=== PATIENT | male | born 1960 | race African-American/Black ===

== ENCOUNTER 2016-10-18 08:47 | Observation (INO) ==
--- NOTE | 2016-10-18 09:15 | EKG Report ---
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: JOSE JUAN : 1960 Requested by: Alonso Roberson Order Number: [id number] Reading MD: ELLIS PENA Intervals [place] Rate: 91 P: 72 RI: 158 QRS: -43 QRSD: 110 T: 146 QT: 397 QTc: 446 Interpretive Statements SINUS RHYTHM POSSIBLE RIGHT ATRIAL ENLARGEMENT POSSIBLE LEFT ATRIAL ENLARGEMENT MARKED LEFT AXIS DEVIATION LEFT VENTRICULAR HYPERTROPHY AND ST-T CHANGE POSSIBLE LATERAL MYOCARDIAL INFARCTION, OF INDETERMINATE AGE INTERPRETATION BASED ON A DEFAULT AGE OF 40 YEARS Electronically Signed On 10-23-16 11:08:52 CDT by ELLIS PENA [id number]
--- NOTE | 2016-10-18 09:17 | Emergency Department Note ---
Rory Licona Gwan, am scribing for, and in the presence of, Alonso Deleon MD 09:15 . Adrienne Licona James D, MD, personally performed the services described in this documentation, ascribed by Cole Valadez in my presence, and it is both accurate and complete . Arrival - Arrival Chief Complaint: Chest Pain ED Nursing Triage Note: Brought in by EMS transfer from [place] [facility] c/o midsternal chest pain-onset last night. +SOB. Denies N/V. Took NTG without relief. Mode of Arrival: Stretcher Limitations: No Limitations Source: Old Records Reviewed, RN Notes Reviewed - History of Present Illness HPI Narrative: Pt is a 56 y/o male, with a hx of HTN/CAD/VT, who presents to the ED via EMS transferred from [place] with a c/o chest pain with an onset 2129 last night. Patient describes his pain as stabbing and stated that his pain has been constant since onset. His associate sxs have been SOB and diaphoresis. He denies any N/V. He confirmed that he is being followed by Dr. Griffin, that he received stent placement in 2009 and that prior to stent placement he was asymptomatic. Patient continued to note that he received NTG at [facility] prior to arrival with little to no relief. He has a SHx of .5 pack cigarettes every 2 days. No other problems/complaints reported in ED. Onset (ago): day(s) Consistency: constant Severity: moderate Allergies/Adverse Reactions: Allergies Allergy/AdvReac Type Severity Reaction Status Date / Time No Known Allergies Allergy Verified 10/18/16 08:58 Review of System - Review of System 12 point system: reviewed and no additional remarkable complaints except as stated - Review of System Constitutional: Present: as per HPI, diaphoresis. Absent: chills, fever Eyes: Absent: discharge, pain Head/Ears/Nose/Throat: Absent: earache Respiratory: Present: as per HPI, other (shortness of breathe). Absent: cough Cardiovascular: Present: as per HPI, chest pain Gastrointestinal: Absent: abdominal pain, nausea, vomiting, diarrhea Genitourinary male: Absent: dysuria Musculoskeletal: Absent: arm pain, back pain, leg pain, neck pain Skin: Absent: rash, lesions Neurological: Absent: headache, weakness Psychiatric: Absent: anxiety, depression Medical,Surgical,& Family Hx - Medical History Cardio: History of: CAD, Hypertension, [place] - Surgical History Cardiac Surgeries: Sugical HX of: Cardiac Catheterization (stents x's 4) - Social History Smoking Status: Current every day smoker Frequency of Alcohol Use: None Type of Drug Use: Marijuana Exam Physical Examination: GENERAL: This is a well-nourished, well-developed black male in no apparent distress. VITAL SIGNS: HEENT: Head is normocephalic and atraumatic. Pupils are equally round and reactive to light. Extraocular movement are intact. Oropharynx is benign with moist mucous membranes. NECK: Neck is soft and supple without tenderness. There are no masses. There is no lymphadenopathy. LUNGS: Lungs are clear to auscultation bilaterally. Chest rises symmetrically. There is no chest wall tenderness. Patient has expiratory wheezes bilaterally CV: Heart is regular rate and rhythm without murmurs, rubs, or gallops. ABDOMEN: Abdomen is soft, non-tender to palpation. There are no abnormal masses palpated. There is no organomegaly. Bowel sounds are present and active. SKIN: Skin is warm and dry. No rash. EXTREMITIES: Patient has full range of motion without tenderness. There is no pedal edema. NEUROLOGIC: Awake, alert, and oriented x4. Cranial nerves II through XII are grossly intact. There are no motorsensory deficits. PSYCHIATRIC: Normal affect. Normal mood. Vital Signs: Vital Signs Temperature 97.9 F 10/18/16 08:54 Pulse Rate 98 H 10/18/16 10:31 Respiratory Rate 20 10/18/16 10:31 Blood Pressure 111/94 10/18/16 10:31 O2 Sat by Pulse Oximetry 96 10/18/16 10:31 Course - Consultations Consultation #1: Discussed with Dr. Donis. Patient will be admitted to his service. Initial orders written for him. He will assume patient's care upon arrival to the [facility]. Time: 11:10 Results - Labs Lab Results: I have reviewed the patients labs Labs: Laboratory Tests 10/18/16 10/18/16 09:22 09:22 Troponin I 0.169 H B-Natriuretic Peptide 619 H - EKG EKG results: interpreted by ERMD - Impressions EKG: Normal sinus rhythm with a rate of 91, voltage for LVH, ST-T wave changes consistent with LVH, left atrial enlargement, right atrial enlargement. - Diagnostic Findings Procedure: Chest x-ray: image reviewed by me (Chest x-ray performed at [facility]: Cardiomegaly with increased pulmonary markings bilaterally.) Disposition Clinical Impression: Chest pain, Coronary artery disease, Essential hypertension Case discussed with: patient Disposition: Still a Patient Condition: Stable
[2016-10-18] MEDS ORDERED: FUROSEMIDE 40 MG/4 ML VIAL IV STA (10:10)
[2016-10-18] MEDS ORDERED: FUROSEMIDE 40 MG/4 ML VIAL ONE (10:28)
[2016-10-18] MEDS ORDERED: MORPHINE 2 MG/1 ML SYRINGE IV STA (10:33)
[2016-10-18] MEDS ORDERED: MORPHINE 2 MG/1 ML SYRINGE ONE (10:37)
[2016-10-18] MEDS ORDERED: MAGNESIUM SULF RIDER 2 GM in PREMIX 1 EACH IV PRN ×2 (11:50→14:11)
[2016-10-18] MEDS ORDERED: SODIUM CHLORIDE 0.9% 1,000 ML IV SCH (11:50)
[2016-10-18] MEDS ORDERED: MORPHINE 2 MG/1 ML SYRINGE IV PRN (11:50)
[2016-10-18] MEDS ORDERED: MAGNESIUM SULF RIDER 4 GM in PREMIX 1 EACH IV PRN (11:50)
[2016-10-18] MEDS ORDERED: ONDANSETRON 4 MG/2 ML VIAL IV PRN (11:50)
[2016-10-18] MEDS ORDERED: ASPIRIN 325 MG TABLET PO SCH (11:50)
[2016-10-18] MEDS ORDERED: NITROGLYCERIN 2% OINT 1 INCH/GM PACK TOP SCH (12:00)
--- NOTE | 2016-10-18 12:01 | EKG Report ---
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 : 1960 Requested by: Alonso Roberson Order Number: [id number] Reading MD: ELLIS PENA Intervals [place] Rate: 99 P: 73 ME: 138 QRS: -38 QRSD: 116 T: 157 QT: 395 QTc: 451 Interpretive Statements SINUS RHYTHM WITH OCCASIONAL VENTRICULAR PREMATURE COMPLEXES POSSIBLE RIGHT ATRIAL ENLARGEMENT POSSIBLE LEFT ATRIAL ENLARGEMENT LEFT AXIS DEVIATION LEFT VENTRICULAR HYPERTROPHY AND ST-T CHANGE POSSIBLE LATERAL MYOCARDIAL INFARCTION, OF INDETERMINATE AGE IF PRESENT POSSIBLE LVH WITH REPOLARIZATION ABNORMALITIES Electronically Signed On 10-23-16 11:17:31 CDT by ELLIS PENA [email or web address]
[2016-10-18 12:45] LABS: Basophils % 0.6 % (0.0-0.8); Eosinophils # 0.2 10*3/uL (0.0-0.87); Eosinophils % 3.4 % (0.00-10.9); Hematocrit 46.6 VOL% (42.0-52.0); Hemoglobin 15.1 GM/DL (14.0-18.0); Immature Granulocytes % 0.3 %; Immature Granulocytes Absolute 0.02 #; Lymphocytes # 1.6 10*3/uL (1.4-4.0); Lymphocytes % 22.6 % (21.2-54.2); Mean Corpuscular HGB Conc 32.4 GM/DL (32-36); Mean Corpuscular Hemoglobin 28 PG (27-34); Mean Platelet Volume 11.7 FL (9.6-12.0); Monocytes # 0.3 10*3/uL (0.11-0.8); Monocytes % 3.8 % (1.7-12.7); Neutrophils # 4.9 10*3/uL (1.4-7.4); Neutrophils % 69.3 % (38.7-73.9); Platelet Count 166 T/CUMM (130-400); Red Blood Count 5.42 MC/CUMM (3.8-5.5); White Blood Count 7.1 T/CUMM (4-12)
[2016-10-18] MEDS ORDERED: ENOXAPARIN 80 MG/0.8 ML SYRINGE SUBCUT SCH (13:00)
[2016-10-18 13:20] LABS: Osmolality,Calculated 278.5 MOS/KG (273-304); Potassium 4.1 MMOL/L (3.5-5.1)
[2016-10-18] MEDS ORDERED: diphenhydrAMINE CAP 25 MG CAPSULE PO ONE (14:11)
[2016-10-18] MEDS ORDERED: POTASSIUM CHLORIDE RIDER 10 MEQ in PREMIX 1 EACH IV PRN (14:11)
[2016-10-18] MEDS ORDERED: DIAZEPAM 5 MG TABLET PO ONE (14:11)
--- NOTE | 2016-10-18 14:20 | Cardiology History & Physical ---
<Colette Guardado E - Last Filed: 10/18/16 14:12> Assessment and Plan - Time spent with patient Time spent with patient: Greater than 30 minutes (Due to assessment, plan, and documentation.) Time spent discussing smoking cessation with patient: 3 to 10 minutes (1) Non-ST elevated myocardial infarction (non-STEMI) Status: Acute Assessment and plan: Mr. Montalvo will be taken to the Cardiology Teacher today for left heart catheterization with possible PCI. Risks and benefits have been discussed with the patient by Dr. Zazueta. The patient agrees to proceed. [facility] Current Visit: Yes (2) Chest pain Status: Acute Assessment and plan: We will proceed with left heart catheterization today for further evaluation. We will continue to cycle cardiac biomarkers. Current Visit: Yes (3) Hypercholesterolemia Status: Chronic Assessment and plan: Continue pravastatin. We will recheck lipid panel in the a.m. Current Visit: Yes (4) History of cocaine use Status: Chronic Assessment and plan: Has not used cocaine since . Urine drug screen pending. Current Visit: Yes (5) Cannabis abuse Status: Chronic Assessment and plan: Admits to smoking marijuana on a regular basis. Current Visit: Yes (6) Tobacco abuse Status: Chronic Assessment and plan: Spent greater than 5 minutes discussing the harmful effects of tobacco use and encouraged patient to quit. Current Visit: Yes (7) Coronary artery disease Status: Chronic Assessment and plan: Previously noted to have percent occlusion of small OM1, diffuse irregularities in the LAD with an aneurysmal segment in the proximal portion after the second septal filler room attendant, dominant RCA with mild diffuse irregularities, 2 diagonal branches with mild diffuse irregularities. Current Visit: Yes (8) Essential hypertension Status: Chronic Assessment and plan: Currently well controlled. Will continue to monitor and adjust medications as needed. We will continue patient's home medications. Current Visit: Yes History of Present Illness Chief complaint: Chest pain History of present illness: Cook Helper Vegetable: Dr. Griffin in the remote past PCP: Dr. Dover Mr. Montalvo is a 56 year old -[place] male who was previously seen by Dr. Griffin. His primary care provider is Dr. Dover. 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 He has a family history of coronary artery disease including a mother who had an VA in her mid 60s, brother who had an VA at age 50 with subsequent CABG. He lives in [place] with his mother. He is and unemployed. 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 His surgical history is noncontributory. Mr. Montalvo presented to [facility] with progressive angina ongoing for approximately 8-12 hours. He tells me that for the past couple days he has had progressive dyspnea on exertion and has been unable to walk short distances. He tells me he has not noticed any leg, abdominal, or facial edema. Last night around 9 PM he noticed a midsternal chest pain that was sharp in quality. He tells me this came and went throughout the night until he went to [facility]. He reports this was mildly relieved with nitroglycerin but returned. He was subsequently transferred to our facility for further evaluation and we admitted him. He tells me his pain had returned upon arrival to our facility but he was given an additional nitroglycerin and this subsided. He reports prior to the past couple of days, he had not had any recent medical issues. Upon arrival to our facility, his troponin was 0.169. Creatinine 1.3, BNP 619, potassium 4.1. His troponin is now up to 0.343. I am seeing Mr. Montalvo along with Dr. Zazueta in the CCU, room 129. It appears Mr. Montalvo has had a second in STEMI and Dr. Zazueta will proceed with left heart catheterization and possible intervention today. He previously underwent left heart catheterization with Dr. link on November 09, 2010 which revealed 100% occluded small OM 1, diffuse irregularities in the LAD with an aneurysmal segment in the proximal portion after the second septal filler room attendant, mild diffuse irregularities in 2 diagonal branches, dominant RCA with mild diffuse irregularities. At that time his ejection fraction was estimated at 15%. Further plan and addendum to followed by Dr. Zazueta. Home Medications Medication Instructions Recorded Confirmed Type Aspirin EC Tab 81 mg PO DAILY 10/18/16 10/18/16 History Carvedilol 12.5 mg PO BID 10/18/16 10/18/16 History Clopidogrel [Plavix] 75 mg PO DAILY 10/18/16 10/18/16 History Lisinopril/Hydrochlorothiazide 1 each PO DAILY 10/18/16 10/18/16 History [Lisinopril-Hctz 20-25 mg Tab] Pravastatin [Pravachol] 40 mg PO BEDTIME 10/18/16 10/18/16 History Allergies Allergy/AdvReac Type Severity Reaction Status Date / Time No Known Allergies Allergy Verified 10/18/16 08:58 Review of systems: - Constitutional: Present: Fatigue, as per HPI. Absent: anorexia, chills, daytime sleepiness, excessive sweating, fever(s), frequent falls, headache(s), increased appetite, lethargy, malaise, night sweats, stops breathing during sleep, weakness, weight gain, weight loss - EENT Eyes: Present: As per HPI. Absent: blurry vision, diplopia, loss of vision Ears: Present: As per HPI. Absent: decreased hearing, ear discharge, ear pain Nose, mouth and throat: Present: As per HPI. Absent: dysphagia, epistaxis, headache(s), hoarseness, lip swelling, nasal congestion, neck mass, neck pain, sinus pressure, sore throat, throat swelling, tongue swelling, vertigo - Cardiovascular: Present: chest pain at rest, chest pain with activity, dyspnea , dyspnea on exertion, as per HPI. Absent: edema, claudication, diaphoresis, radiating jaw, neck or arm pain, lightheadedness, orthopnea, palpitations, PND - Respiratory: Present: dyspnea, dyspnea on exertion, as per HPI. Absent: cough , hemoptysis, wheezing, snoring, pain on inspiration - Gastrointestinal: Present: As per HPI. Absent: abdominal pain, bloating, change in bowel habits, constipation, diarrhea, heartburn, hematemesis, hematochezia, loose stools, melena, nausea, vomiting - Genitourinary: Present: As per HPI. Absent: difficulty urinating, dysuria, flank pain, hematuria, nocturia, urinary frequency, urinary incontinence - Musculoskeletal: Present: As per HPI. Absent: arthralgias, back pain, joint swelling, limited range of motion, muscle cramps, muscle weakness, myalgias - Neurological: Present: As per HPI. Absent: abnormal gait, abnormal speech, behavioral changes, confusion, convulsions, disequilibrium, dizziness, focal weakness, frequent falls, headache(s), memory loss, numbness, paresthesias, radicular pain, syncope, tremor(s) - Psychiatric: Present: As per HPI. Absent: anxiety, confusion, depression, panic attacks - Endocrine: Present: fatigue, As per HPI. Absent: cold intolerance, heat intolerance, polydipsia, polyphagia - Hematologic/Lymphatic: Present: As per HPI. Absent: easy bleeding, easy bruising, lymphadenopathy Medical,Surgical,& Family Hx - Medical History Cardio: History of: CHF (End-stage cardiomyopathy with previous ejection fraction 15%.), CAD, Hypertension, [place] Endocrine: History of: Dyslipidemia No history of: Diabetes Mellitus (IDDM), Diabetes Mellitus (NIDDM) Respiratory: History of: Pneumonia Musculoskeletal: History of: Back/Neck Problems - Surgical History Cardiac Surgeries: Sugical HX of: Cardiac Catheterization (stents x's 4) - Family History Family History: Reports;: Family Diabetes (mother), Family Heart Disease (mother ), Family Hypertension (everyone), Family Stroke (mother) - Social History Smoking Status: Current every day smoker Have you smoked in the last 12 months: Yes Time spent discussing smoking cessation with patient: 3 to 10 minutes Frequency of Alcohol Use: None Type of Drug Use: Cocaine (In the ), Marijuana Marital Status: Lives With:: Parent Functional capacity: independent ambulation Cardiology Physical Exam - Constitutional Vitals: Vital Signs Temp Pulse Resp BP Pulse Ox 97.9 F 93 H 18 120/106 98 10/18/16 08:54 10/18/16 11:18 10/18/16 11:18 10/18/16 11:18 10/18/16 11:18 Intake and Output 10/17/16 10/18/16 10/18/16 22:59 06:59 14:59 Other: Weight 181 lb 9.6 oz Patient Weight 10/19/16 06:59 Weight 181 lb 9.6 oz Exam: General appearance: Pleasant and cooperative. Normal weight, no acute distress. - Head Head exam: Present: normal inspection, normocephalic, atraumatic. Absent: hematoma, laceration - Eye Eye exam: Present: EOMI. Absent: conjunctival injection, nystagmus, periorbital swelling, scleral icterus, laceration to eyelids Pupils: Present: PERRL. Absent: constricted, dilated, fixed, irregular, unequal - ENT ENT exam: Present: normal exam, normal external ear exam - Neck Neck exam: Present: normal inspection. Absent: lymphadenopathy, meningismus, tenderness, thyromegaly - Respiratory Respiratory exam: Present: Mild bibasilar crackles posteriorly otherwise clear to auscultation bilaterally. Absent: accessory muscle use, chest wall tenderness - Cardiovascular Cardiovascular exam: Present: regular rate and rhythm, systolic murmur best appreciated at the apex. Absent: gallop, rubs - GI/Abdominal GI/Abdominal exam: Present: normal bowel sounds, soft. Absent: distended, firm , guarding, hernia, mass, tenderness, rebound. - Extremities Exam Extremities exam: Present: normal inspection, normal capillary refill. Upper extremity pulses 2+. Lower extremity pulses 2+. Absent: calf tenderness, edema - Back Exam Back exam: Present: normal inspection. Absent: muscle spasm, vertebral tenderness - Neurological Exam Neurological exam: Present: alert, oriented X3, grossly intact without resting or essential tremor - Psychiatric Psychiatric exam: Present: normal affect, normal mood - Skin Skin exam: Present: normal color, warm, dry, intact. Absent: cyanosis, diaphoretic, rash, urticaria Result/EKG - Labs CBC & BMP: 10/18/16 12:20 10/18/16 12:20 Lab Results: I have reviewed the past 24 hour labs Labs: Laboratory Results - last 24 hr 10/18/16 10/18/16 10/18/16 12:20 12:20 12:22 WBC 7.1 RBC 5.42 Hgb 15.1 Hct 46.6 MCV 86.0 L MCH 28 MCHC 32.4 RDW 14.0 Plt Count 166 MPV 11.7 Neut % (Auto) 69.3 Lymph % (Auto) 22.6 [place] % (Auto) 3.8 Eos % (Auto) 3.4 Baso % (Auto) 0.6 Neut # (Auto) 4.9 Lymph # (Auto) 1.6 [place] # (Auto) 0.3 Eos # (Auto) 0.2 Baso # (Auto) 0.0 Immature Gran % 0.3 Nucleated RBC % 0.0 Immature Gran # 0.02 Nucleated RBCs # 0.00 Sodium 139 Potassium 4.1 Chloride 107 Carbon Dioxide 23 Anion Gap 13.1 BUN 17 Creatinine 1.30 GFR Calculation 84 BUN/Creatinine Ratio 13.00 Glucose 104 Calculated Osmolality 278.5 Calcium 9.0 Troponin I 0.343 H D - EKG EKG results: interpreted by me, sinus rhythm (With T-wave inversions in numerous leads.) EKG shows: tachycardia <Guido Zazueta - Last Filed: 10/18/16 15:19> History of Present Illness History of present illness: Mr. Montalvo is a 56 year old male Cardiology Physical Exam - Constitutional Vitals: Vital Signs Temp Pulse Resp BP Pulse Ox 97.4 F L 96 H 18 149/90 96 10/18/16 11:50 10/18/16 12:00 10/18/16 14:00 10/18/16 12:00 10/18/16 12:00 Intake and Output 10/17/16 10/18/16 10/18/16 23:59 07:59 15:59 Intake Total 360 / 360 Output Total 700 / 700 Balance -340 / -340 Intake: Oral 360 / 360 Output: Urine 700 / 700 Other: Voiding Method Urinal # Voids 3 Weight 82.372 kg Patient Weight 10/18/16 23:59 Weight 82.372 kg Result/EKG - Labs CBC & BMP: 10/18/16 12:20 10/18/16 12:20 Labs: Laboratory Results - last 24 hr 10/18/16 10/18/16 10/18/16 12:20 12:20 12:22 WBC 7.1 RBC 5.42 Hgb 15.1 Hct 46.6 MCV 86.0 L MCH 28 MCHC 32.4 RDW 14.0 Plt Count 166 MPV 11.7 Neut % (Auto) 69.3 Lymph % (Auto) 22.6 [place] % (Auto) 3.8 Eos % (Auto) 3.4 Baso % (Auto) 0.6 Neut # (Auto) 4.9 Lymph # (Auto) 1.6 [place] # (Auto) 0.3 Eos # (Auto) 0.2 Baso # (Auto) 0.0 Immature Gran % 0.3 Nucleated RBC % 0.0 Immature Gran # 0.02 Nucleated RBCs # 0.00 Sodium 139 Potassium 4.1 Chloride 107 Carbon Dioxide 23 Anion Gap 13.1 BUN 17 Creatinine 1.30 GFR Calculation 84 BUN/Creatinine Ratio 13.00 Glucose 104 Calculated Osmolality 278.5 Calcium 9.0 Troponin I 0.343 H D
--- NOTE | 2016-10-18 14:42 | Cardiology History & Physical ---
History of Present Illness History of present illness: Mr. Montalvo is a 56 year old male Home Medications Medication Instructions Recorded Confirmed Type Aspirin EC Tab 81 mg PO DAILY 10/18/16 10/18/16 History Carvedilol 12.5 mg PO BID 10/18/16 10/18/16 History Clopidogrel [Plavix] 75 mg PO DAILY 10/18/16 10/18/16 History Lisinopril/Hydrochlorothiazide 1 each PO DAILY 10/18/16 10/18/16 History [Lisinopril-Hctz 20-25 mg Tab] Pravastatin [Pravachol] 40 mg PO BEDTIME 10/18/16 10/18/16 History Allergies Allergy/AdvReac Type Severity Reaction Status Date / Time No Known Allergies Allergy Verified 10/18/16 08:58 Medical,Surgical,& Family Hx - Medical History Cardio: History of: CHF (End-stage cardiomyopathy with previous ejection fraction 15%.), CAD, Hypertension, [place] Endocrine: History of: Dyslipidemia No history of: Diabetes Mellitus (IDDM), Diabetes Mellitus (NIDDM) Respiratory: History of: Pneumonia Musculoskeletal: History of: Back/Neck Problems - Surgical History Cardiac Surgeries: Sugical HX of: Cardiac Catheterization (stents x's 4) - Family History Family History: Reports;: Family Diabetes (mother), Family Heart Disease (mother ), Family Hypertension (everyone), Family Stroke (mother) - Social History Smoking Status: Current every day smoker Frequency of Alcohol Use: None Type of Drug Use: Cocaine (In the 1990s), Marijuana Cardiology Physical Exam - Constitutional Vitals: Vital Signs Temp Pulse Resp BP Pulse Ox 97.9 F 93 H 18 120/106 98 10/18/16 08:54 10/18/16 11:18 10/18/16 11:18 10/18/16 11:18 10/18/16 11:18 Intake and Output 10/17/16 10/18/16 10/18/16 22:59 06:59 14:59 Other: Weight 181 lb 9.6 oz Patient Weight 10/19/16 06:59 Weight 181 lb 9.6 oz Result/EKG - Labs CBC & BMP: 10/18/16 12:20 10/18/16 12:20 Labs: Laboratory Results - last 24 hr 10/18/16 10/18/16 10/18/16 12:20 12:20 12:22 WBC 7.1 RBC 5.42 Hgb 15.1 Hct 46.6 MCV 86.0 L MCH 28 MCHC 32.4 RDW 14.0 Plt Count 166 MPV 11.7 Neut % (Auto) 69.3 Lymph % (Auto) 22.6 [place] % (Auto) 3.8 Eos % (Auto) 3.4 Baso % (Auto) 0.6 Neut # (Auto) 4.9 Lymph # (Auto) 1.6 [place] # (Auto) 0.3 Eos # (Auto) 0.2 Baso # (Auto) 0.0 Immature Gran % 0.3 Nucleated RBC % 0.0 Immature Gran # 0.02 Nucleated RBCs # 0.00 Sodium 139 Potassium 4.1 Chloride 107 Carbon Dioxide 23 Anion Gap 13.1 BUN 17 Creatinine 1.30 GFR Calculation 84 BUN/Creatinine Ratio 13.00 Glucose 104 Calculated Osmolality 278.5 Calcium 9.0 Troponin I 0.343 H D
[2016-10-18] MEDS ORDERED: LIDOCAINE 1% 20 ML VIAL ONE (14:44)
[2016-10-18] MEDS ORDERED: HYDROmorphone 2 MG/1 ML VIAL ONE (14:44)
[2016-10-18] MEDS ORDERED: MIDAZOLAM 2 MG/2 ML VIAL ONE (14:45)
[2016-10-18] MEDS ORDERED: ZALEPLON 5 MG CAPSULE PO PRN (15:13)
[2016-10-18] MEDS ORDERED: NITROGLYCERIN SL 0.4 MG TABLET SL PRN (15:13)
--- NOTE | 2016-10-18 15:39 | Cardiac Catheterization ---
Date of Procedure:: 10/18/16 Post-op diagnosis: same Procedure: Procedure performed: 1. Left heart catheterization 2. Coronary angiography 3. Left jugular 4. Right femoral arteriotomy closures with ancillary device Brief clinical summary: Mr. Montalvo is a 56-year-old with known severe cardiomyopathy was a smoker and presented out of his medications for week or 2 with increased dyspnea on exertion prolonged chest pain with mild troponin elevation of 0.3. Description of procedure: After obtaining informed consent, the right groin was prepped and draped in the usual sterile fashion. Next a short 6 Malian sheath was placed in the right femoral artery using a modified Seldinger technique, after the patient received IV sedation and local anesthetic. Next a JL4 catheter was advanced over a guidewire under fluoroscopic guidance, and was engaged to the left coronary artery after which angiography was performed in multiple views. This was then removed over a wire, and a JR4 catheter was advanced in similar fashion was engaged the right coronary artery after which angiography was performed in multiple views. Next a bent pigtail catheter was advanced into the left ventricle, where hemodynamic measurements were obtained, left ventriculography was performed. I was able to visualize the sheath on a "hay down" shot which showed the sheath was inserted in the right common femoral artery in a vessel suitable for closure. Hemostasis was obtained with Angio-Seal device with no residual bleeding. He was transferred from the oven laborer in good condition without complication. Coronary angiography: The left main coronary artery is large with normal developed free of disease. All the arteries are quite large and ectatic particularly ectatic in the proximal LAD. There are moderate irregularities throughout the coronary arteries. The LAD gives off a large than average bifurcating diagonal branch. Circumflex gives off 2 slightly larger than average obtuse marginal branches. The right coronary artery gives off a large than average PDA with 30% mid stenosis. There is also a large than average posterior lateral branch. Left ventricular apical and left ventricles modestly enlarged was fairly reduced LV systolic function. The estimated ejection fraction is 20-25%. There does not appear to be significant mitral regurgitation. Impression: 1. Severely reduced LV systolic function ejection fraction estimated be 20-25% with global hypokinesis 2. Right dominant system 3. Diffusely ectatic vessels which are large (particularly in the proximal LAD) 4. Moderate irregularities with trivial CAD (30% mid PDA stenosis) Recommendations and discussion: Given these findings it appears Mr. Montalvo had exacerbation of his heart failure due to medical noncompliance. I will sizes need not run of medication and to discontinue smoking. I will start him back on Coreg and low-dose YOLANDA inhibitor. He may benefit from nitrates and hydralazine. Anesthesia: minimal conscious sedation Surgeon / Physician: Guido Zazueta Inspector Canned Food Reconditioning: other Estimated blood loss: minimal Specimens: none sent Condition: stable Disposition: ICU/CCU - Medications / Follow-up
--- NOTE | 2016-10-18 16:05 | Cardiac Catheterization ---
Date of Procedure:: 10/18/16 Post-op diagnosis: same Anesthesia: minimal conscious sedation Surgeon / Physician: Guido Zazueta Oracle Etl Developer: other Estimated blood loss: minimal Specimens: none sent Condition: stable Disposition: ICU/CCU - Medications / Follow-up
[2016-10-18] MEDS: FUROSEMIDE 40 MG/4 ML VIAL IV SCH (16:45)
[2016-10-18] MEDS: CARVEDILOL 3.125 MG TABLET PO SCH (20:59)
[2016-10-18] MEDS: LISINOPRIL 5 MG TABLET PO SCH (20:59)
[2016-10-19 04:04] LABS: Basophils % 0.6 % (0.0-0.8); Eosinophils # 0.3 10*3/uL (0.0-0.87); Eosinophils % 4.6 % (0.00-10.9); Hematocrit 44.7 VOL% (42.0-52.0); Hemoglobin 14.6 GM/DL (14.0-18.0); Immature Granulocytes % 0.3 %; Immature Granulocytes Absolute 0.02 #; Lymphocytes # 1.5 10*3/uL (1.4-4.0); Lymphocytes % 23.2 % (21.2-54.2); Mean Corpuscular HGB Conc 32.7 GM/DL (32-36); Mean Corpuscular Hemoglobin 28 PG (27-34); Mean Corpuscular Volume 85.5 FL (87-102); Mean Platelet Volume 11.3 FL (9.6-12.0); Monocytes # 0.3 10*3/uL (0.11-0.8); Monocytes % 4.4 % (1.7-12.7); Neutrophils # 4.3 10*3/uL (1.4-7.4); Neutrophils % 66.9 % (38.7-73.9); Platelet Count 147 T/CUMM (130-400); Red Blood Count 5.23 MC/CUMM (3.8-5.5); Red Cell Distribution Width 13.8 % (9.3-17.3); White Blood Count 6.4 T/CUMM (4-12)
[2016-10-19 04:37] LABS: Calcium 9.1 MG/DL (8.5-10.1); Osmolality,Calculated 282.3 MOS/KG (273-304); Potassium 3.9 MMOL/L (3.5-5.1)
--- NOTE | 2016-10-19 06:39 | EKG Report ---
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
--- NOTE | 2016-10-19 07:25 | EKG Report ---
Stationary ECG Study [facility] Test Date: 10/19/2016 7:24:54 AM Pat Name: DIAMOND UP Department: Room: 282 Gender: M Patient Accounts Manager: JULI : 1960 Requested by: Guido Miller Order Number: [id number] Reading MD: ELLIS PENA Intervals [place] Rate: 88 P: 63 [place]: 157 QRS: -47 QRSD: 116 T: 158 QT: 416 QTc: 461 Interpretive Statements SINUS RHYTHM LEFT ANTERIOR FASCICULAR BLOCK LEFT VENTRICULAR HYPERTROPHY AND ST-T CHANGE POSSIBLE POSSIBLE LATERAL MYOCARDIAL INFARCTION, OF INDETERMINATE AGE IF PRESENT Electronically Signed On 10-23-16 11:43:19 CDT by ELLIS PENA [email or web address]
[2016-10-19] MEDS ORDERED: ATORVASTATIN 40 MG TABLET PO SCH (09:00)
[2016-10-19] MEDS ORDERED: NICOTINE 21 MG/24 HR PATCH TRANSDERM SCH (09:00)
[2016-10-19] MEDS ORDERED: SPIRONOLACTONE 25 MG TABLET PO SCH (09:00)
[2016-10-19] MEDS: LISINOPRIL 5 MG TABLET PO SCH (09:01)
[2016-10-19] MEDS: FUROSEMIDE 40 MG/4 ML VIAL IV SCH (09:02)
[2016-10-19] MEDS: CARVEDILOL 3.125 MG TABLET PO SCH (09:02)
[2016-10-19] MEDS ORDERED: ALUM/MAG/SIMETH/LIDO VISC 1:1 30 ML BOTTLE PO ONE ×2 (10:36)
[2016-10-19] MEDS ORDERED: KETOROLAC 30 MG/1 ML VIAL IV ONE (10:50)
[2016-10-19] MEDS ORDERED: ISOSORBIDE MONONITRATE 30 MG TABLET PO SCH (11:00)
--- NOTE | 2016-10-19 11:57 | Discharge Summary ---
Fazal Licona April RN, am scribing for, and in the presence of, Anaid Arroyo NP 10:33. Hospital Course - Hospital Course Hospital Course: Mr. Montalvo presented to [facility] with progressive angina ongoing for approximately 8-12 hours. He tells me that for the past couple days he has had progressive dyspnea on exertion and has been unable to walk short distances. He tells me he has not noticed any leg, abdominal, or facial edema. Last night around 9 PM he noticed a midsternal chest pain that was sharp in quality. He tells me this came and went throughout the night until he went to [facility]. He reports this was mildly relieved with nitroglycerin but returned. He was subsequently transferred to our facility for further evaluation and we admitted him. He tells me his pain had returned upon arrival to our facility but he was given an additional nitroglycerin and this subsided. He reports prior to the past couple of days, he had not had any recent medical issues. Upon arrival to our facility, his troponin was 0.169. Creatinine 1.3, BNP 619, potassium 4.1. His troponin was up to 0.343 on his second check. He previously underwent left heart catheterization with Dr. Griffin on November 09, 2010 which revealed 100% occluded small OM 1, diffuse irregularities in the LAD with an aneurysmal segment in the proximal portion after the second septal milk drier , mild diffuse irregularities in 2 diagonal branches, dominant RCA with mild diffuse irregularities. At that time his ejection fraction was estimated at 15% . Mr. Montalvo was taken to the general laborer 10/18/16 with the following findings: 1. Severely reduced LV systolic function ejection fraction estimated be 20-25% with global hypokinesis 2. Right dominant system 3. Diffusely ectatic vessels which are large (particularly in the proximal LAD) 4. Moderate irregularities with trivial CAD (30% mid PDA stenosis) Currently patient is resting in bed in no acute distress. He denies shortness of breath, palpitations, or dizziness. Right groin soft, free of hematoma or bruit. Patient did have chest pain this morning. EKG was obtained which revealed an improvement since the prior EKG on admission. His chest pain was reproducible to left chest wall. Patient was given Toradol 30 mg IV and his chest pain improved. A long discussion ensued today regarding the need for continued compliance with his medications, cessation of illicit drugs including cocaine, alcohol, marijuana. He states he will abstain. Also, I reiterated the importance of securing insurance benefits as he has a severe cardiomyopathy and may need a defibrillator in approximately 90 days. He tells me he is working on disability but has been denied numerous times. I have encouraged him to obtain his hospital records from this hospitalization which he generalized the severity of his newly discovered cardiomyopathy. He should qualify for disability at this time. Patient is being given a 1-2 week follow-up appointment with Dr. Zazueta. Discharged on the following medications: Nitrostat 0.4 sublingual as needed Spironolactone 25 mg p.o. daily Carvedilol 6.25 p.o. twice daily Plavix 75 mg p.o. daily NicoDerm CQ 21 mg patch Aspirin 81 mg p.o. daily Lipitor 40 mg p.o. daily Lisinopril hydrochlorothiazide 20/25 p.o. daily Acetaminophen 325mg orally BID for one week Neurontin 100mg orally TID for one week. - Time spent with patient Time with patient DS: Greater than 30 minutes Time spent discussing smoking cessation with patient: more than 10 minutes Diagnosis - Discharge Diagnosis (1) Chest pain Status: Resolved (2) Coronary artery disease Status: Chronic (3) History of cocaine use Status: Chronic (4) Hypercholesterolemia Status: Chronic (5) Tobacco abuse Status: Chronic (6) NICM (nonischemic cardiomyopathy) Status: Chronic Specialty Discharge - Follow Up or Referrals Follow up with: Guido Zazueta MD [Physician] - 2 Weeks (11/02/16 at 8:00 labs and 8:20 appointment with [facility] cbc lipid ekg) Discharge Plan - Discharge Data Disposition: Disch To Home/Self Care Condition at Discharge: Stable Discharge Diet: heart healthy Activity: other (post cath expectations) Hygiene: other (post cath expectations) Weight Bearing at Discharge: other (post cath expectations) Driving: other (post cath expectations) Contact your physician if you experience:: fever over 101, Difficulty voiding, Redness or swelling, Nausea/Vomiting, Shortness of breath, Bleeding, pain uncontrolled by pain medications - Discharge Medications [place] Cap/Tab [Neurontin Cap/Tab] 100 mg PO TID #21 capsule Acetaminophen Tab [Tylenol Tab] 325 mg PO BID #14 tablet Continue Atorvastatin [Lipitor] 40 mg PO DAILY #30 tablet Carvedilol [Coreg] 6.25 mg PO BID #60 tablet Lisinopril/Hydrochlorothiazide [Lisinopril-Hctz 20-25 mg Tab] 1 each PO DAILY #30 tablet Nitroglycerin Sl Tab [Nitrostat] 0.4 mg SL Q5M PRN #30 tablet PRN Reason: Chest Pain Spironolactone [Aldactone] 25 mg PO DAILY #30 tablet Aspirin EC Tab 81 mg PO DAILY Clopidogrel [Plavix] 75 mg PO DAILY #30 tablet Discontinued Carvedilol 12.5 mg PO BID Pravastatin [Pravachol] 40 mg PO BEDTIME - Follow Up or Referral Follow Up: Guido Zazueta MD [Physician] - 2 Weeks (11/02/16 at 8:00 labs and 8:20 appointment with cmp cbc lipid ekg) - Forms/Instructions Instructions: Left Heart Catheterization (DC), Restrictive Cardiomyopathy (GEN) , Heart Healthy Diet (GEN) Exam - Constitutional Vitals: Period Temp Pulse Resp BP Sys/Cevallos Pulse Ox Last 24 Hr 96.9 F-97.6 F 70-95 12-28 97-157/68-104 91-97 General appearance: normal weight, no acute distress - Head Head exam: Absent: abrasion, hematoma - Eye Eye exam: Absent: periorbital swelling, laceration to eyelids Pupils: Present: MADI. Absent: constricted - ENT ENT exam: Present: normal external ear exam, normal oropharynx - Neck Neck exam: Absent: lymphadenopathy, tenderness, thyromegaly - Respiratory Respiratory exam: Present: clear to auscultation bilaterally, chest wall tenderness. Absent: accessory muscle use - Cardiovascular Cardiovascular exam: Present: regular rate and rhythm. Absent: rubs - GI/Abdominal GI/Abdominal exam: Present: normal bowel sounds, soft. Absent: distended, tenderness - Extremities Exam Extremities exam: Present: other (right groin without evidence of hematoma or bleeding, no bruit appreciated). Absent: edema - Back Exam Back exam: Absent: CVA tenderness (L), CVA tenderness (R), muscle spasm - Neurological Exam Neurological exam: Present: alert, oriented X3, normal gait - Psychiatric Psychiatric exam: Present: normal affect, normal mood - Skin Skin exam: Present: warm, dry Discharge Results Procedures and tests throughout hospitalization: Pending Orders 10/18/16 11:55 MRSA Surveillence, Inf Control Routine Labs on day of discharge: Labs from last 24 hours 10/19/16 10/19/16 10/18/16 03:42 03:42 18:17 WBC 6.4 RBC 5.23 Hgb 14.6 Hct 44.7 MCV 85.5 L MCH 28 MCHC 32.7 RDW 13.8 Plt Count 147 MPV 11.3 Neut % (Auto) 66.9 Lymph % (Auto) 23.2 [place] % (Auto) 4.4 Eos % (Auto) 4.6 Baso % (Auto) 0.6 Neut # (Auto) 4.3 Lymph # (Auto) 1.5 [place] # (Auto) 0.3 Eos # (Auto) 0.3 Baso # (Auto) 0.0 Immature Gran % 0.3 Nucleated RBC % 0.0 Immature Gran # 0.02 Nucleated RBCs # 0.00 Sodium 141 Potassium 3.9 Chloride 107 Carbon Dioxide 24 Anion Gap 13.9 BUN 18 Creatinine 1.20 GFR Calculation 92 BUN/Creatinine Ratio 15.00 Glucose 100 Calculated Osmolality 282.3 Calcium 9.1 Troponin I 3.250 H 10/18/16 10/18/16 17:02 12:22 WBC RBC Hgb Hct MCV MCH MCHC RDW Plt Count MPV Neut % (Auto) Lymph % (Auto) [place] % (Auto) Eos % (Auto) Baso % (Auto) Neut # (Auto) Lymph # (Auto) [place] # (Auto) Eos # (Auto) Baso # (Auto) Immature Gran % Nucleated RBC % Immature Gran # Nucleated RBCs # Sodium Potassium Chloride Carbon Dioxide Anion Gap BUN Creatinine GFR Calculation BUN/Creatinine Ratio Glucose Calculated Osmolality Calcium Troponin I 3.050 H D 0.343 H D - Imaging and Cardiology Cardiology Procedure: report reviewed by me Procedure: Chest x-ray: report reviewed by me DS: Provider Consults: 10/18/16 13:28 Consult to Pharmacy [CONS] Routine Reason for Pharmacy Consult: Adjust Meds Renal Funct 10/18/16 15:13 Consult to Cardiac Rehabilitation [CONS] Routine Reason for Cardiac Rehabilitation: Appt Out Pt Cardiac Rehab Consult Comment: Severe CMP; CHF Class IIb Expected date of discharge: 10/19/16 Cruz Licona Bonnie E, NP, personally performed the services described in this documentation, ascribed by Zohreh Diehl RN in my presence, and it is both accurate and complete .
--- NOTE | 2016-10-19 12:16 | EKG Report ---
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
[2016-10-19] MEDS ORDERED: GABAPENTIN 100 MG CAPSULE PO SCH (15:00)
[2016-10-19 16:26] VITALS: BP 101/65
[2016-10-19] MEDS ORDERED: ACETAMINOPHEN 325 MG TABLET PO SCH (21:00)
== END 2016-10-19 17:45 | disposition home or self-care (01) ==
LOC: EDBD → EDUNIT# → N.ED 08:47 → N.EDINP 08:47 → N.CC 11:37 → N.TELEN 17:49
PROVIDERS: ADMIT Internal Medicine Cardiovascular Disease; ATTEND Internal Medicine Cardiovascular Disease
PROC: CLCCHCL (ICD-10-PCS; 2016-10-18 15:15)

== ENCOUNTER 2016-10-21 15:20 | Inpatient (IN) ==
--- NOTE | 2016-10-21 15:49 | Emergency Department Note ---
IGema Mantricia, am scribing for, and in the presence of, Soumya Hernandez DO 15:42. IDavid Debra, DO, personally performed the services described in this documentation, ascribed by Sissy Ribeiro in my presence, and it is both accurate and complete . Arrival - Arrival Chief Complaint: Chest Pain ED Nursing Triage Note: c/o cp onset this am about 0800 Mode of Arrival: Stretcher Limitations: No Limitations Source: Patient - History of Present Illness HPI Narrative: Pt is a 56 y/o black male arriving to ED by EMS with c/o chest pain. He reports that the pain started around 07:30 while eating breakfast. He describes the severity of the pain as 7.5/10; this morning the pain was 8/10. Pt admits to taking cocaine, smoking marijuana and cigarettes, and consuming ETOH last week. He has a PMHx of stents in 2008. Onset (ago): hour(s) Consistency: constant Severity: mild Severity scale (1-10): 4 Allergies/Adverse Reactions: Allergies Allergy/AdvReac Type Severity Reaction Status Date / Time No Known Allergies Allergy Verified 10/18/16 08:58 Home Medications: Home Medications Medication Instructions Recorded Confirmed Type Aspirin EC Tab 81 mg PO DAILY 10/18/16 10/18/16 History Acetaminophen Tab [Tylenol Tab] 325 mg PO BID #14 tablet 10/19/16 Rx Atorvastatin [Lipitor] 40 mg PO DAILY #30 tablet 10/19/16 Rx Carvedilol [Coreg] 6.25 mg PO BID #60 tablet 10/19/16 Rx Clopidogrel [Plavix] 75 mg PO DAILY #30 tablet 10/19/16 Rx Gabapentin Cap/Tab [Neurontin 100 mg PO TID #21 capsule 10/19/16 Rx Cap/Tab] Lisinopril/Hydrochlorothiazide 1 each PO DAILY #30 tablet 10/19/16 Rx [Lisinopril-Hctz 20-25 mg Tab] Nitroglycerin Sl Tab [Nitrostat] 0.4 mg SL Q5M PRN #30 tablet 10/19/16 Rx Spironolactone [Aldactone] 25 mg PO DAILY #30 tablet 10/19/16 Rx Review of System - Review of System 12 point system: reviewed and no additional remarkable complaints except as stated - Review of System Constitutional: Absent: chills, diaphoresis, fever Eyes: Absent: discharge, pain, redness Head/Ears/Nose/Throat: Absent: earache Respiratory: Absent: cough, respiratory distress Cardiovascular: Present: chest pain (7.5/10 severity). Absent: palpitations, dyspnea on exertion Gastrointestinal: Absent: abdominal pain, nausea, vomiting, diarrhea Genitourinary male: Absent: urgency, dysuria Musculoskeletal: Absent: arm pain, back pain, lower back pain, leg pain, neck pain Skin: Absent: rash, lesions Neurological: Absent: headache, weakness Psychiatric: Absent: anxiety, depression Medical,Surgical,& Family Hx - Medical History Cardio: History of: CHF (End-stage cardiomyopathy with previous ejection fraction 15%.) Endocrine: History of: Dyslipidemia No history of: Diabetes Mellitus (IDDM), Diabetes Mellitus (NIDDM) Respiratory: History of: Pneumonia Musculoskeletal: History of: Back/Neck Problems - Family History Family History: Reports;: Family Diabetes (mother), Family Heart Disease (mother ), Family Hypertension (everyone), Family Stroke (mother) - Social History Smoking Status: Smoker, status unknown Frequency of Alcohol Use: Occasionally Type of Drug Use: None Exam Vital Signs: Vital Signs Temperature 97.6 F 10/21/16 15:24 Pulse Rate 91 H 10/21/16 15:24 Respiratory Rate 18 10/21/16 15:36 Blood Pressure 112/85 10/21/16 15:24 O2 Sat by Pulse Oximetry 98 10/21/16 15:24 - General General appearance: alert, in no apparent distress - Head Head exam: Present: atraumatic, normocephalic, normal inspection - Eye Eye exam: Present: normal appearance, PERRL, EOMI - ENT ENT exam: Present: normal exam, normal oropharynx, mucous membranes moist, TM's normal bilaterally, normal external ear exam - Neck Neck exam: Present: normal inspection, full ROM, trachea midline. Absent: tenderness - Chest Chest inspection: Present: normal inspection, symmetric chest wall rise. Absent : tenderness - Respiratory Respiratory exam: Present: normal lung sounds bilaterally - Cardiovascular Cardiovascular exam: Present: regular rate, normal rhythm, normal heart sounds - Abdominal Exam Abdominal exam: Present: soft, distention, normal bowel sounds. Absent: tenderness, guarding, rebound - Extremities Exam Extremities exam: Present: normal inspection, full ROM, normal capillary refill. Absent: tenderness, pedal edema - Back Exam Back exam: Present: normal inspection, full ROM. Absent: tenderness - Neurological Exam Neurological exam: Present: alert, oriented X3, CN II-XII intact, reflexes normal - Psychiatric Psychiatric exam: Present: normal affect, normal mood - Skin Skin exam: Present: warm, dry, intact, normal color Course Course Narrative: spoke with DR Zazueta who will admit pt Results - EKG EKG results: interpreted by ERMD (possible early repo? does not appear to be a STEMI) Disposition Clinical Impression: Chest pain Case discussed with: patient Disposition: Still a Patient Condition: Stable Time of Disposition: 16:07
--- NOTE | 2016-10-21 16:00 | Cardiology History & Physical ---
Assessment and Plan (1) Chest pain at rest Status: Acute Assessment and plan: 1. 56-year-old BM smoker with hypertension, dyslipidemia, severe cardiomyopathy , cocaine abuse oh (denies any for one week) and reported small vessel CAD in 2010, who presented early this week out of his heart failure medication for one to 2 weeks with increasing dyspnea, and episodes of prolonged chest discomfort lasting for hours with troponin elevation maxing at 3, with no obstructive coronary artery disease at catheterization (less than 30% stenoses, but large ectatic vessels). 2. EKG shows early repolarization with early repolarization, and LVO 3. Chest pain is improving but persists; give Lovenox 1 mg/kg twice a day with follow-up cardiac panels. 4. I discussed with his absolute need to stop all smoking 5. Previous history of cocaine and cannabis use; urine tox screen is pending. 6. Severely reduced LV systolic function with ejection fraction 20-25% eye catheterization (modest better than at catheterization 2010 when his anatomy was essentially same as it is now) 7. Plan to observe overnight on telemetry. (2) Essential hypertension Status: Chronic (3) History of cocaine use Status: Chronic (4) Hypercholesterolemia Status: Chronic (5) Tobacco abuse Status: Chronic History of Present Illness Chief complaint: cp History of present illness: Mr. Montalvo is a 56 year old male who is discharged 2 days ago after being admitted with chest pain with moderate troponin elevation to 3. A catheterization. Severely reduced LV function but had no obstructive disease. He did have ectatic coronary arteries particular proximal LAD. His EF 20-25%. He reports that he felt well yesterday with no problems, but then about 730 this morning relating breakfast he developed chest pain which moved along the left side and is persisted for 8 hours though it has diminished some. Home Medications Medication Instructions Recorded Confirmed Type Aspirin EC Tab 81 mg PO DAILY 10/18/16 10/18/16 History Acetaminophen Tab [Tylenol Tab] 325 mg PO BID #14 tablet 10/19/16 Rx Atorvastatin [Lipitor] 40 mg PO DAILY #30 tablet 10/19/16 Rx Carvedilol [Coreg] 6.25 mg PO BID #60 tablet 10/19/16 Rx Clopidogrel [Plavix] 75 mg PO DAILY #30 tablet 10/19/16 Rx Gabapentin Cap/Tab [Neurontin 100 mg PO TID #21 capsule 10/19/16 Rx Cap/Tab] Lisinopril/Hydrochlorothiazide 1 each PO DAILY #30 tablet 10/19/16 Rx [Lisinopril-Hctz 20-25 mg Tab] Nitroglycerin Sl Tab [Nitrostat] 0.4 mg SL Q5M PRN #30 tablet 10/19/16 Rx Spironolactone [Aldactone] 25 mg PO DAILY #30 tablet 10/19/16 Rx Allergies Allergy/AdvReac Type Severity Reaction Status Date / Time No Known Allergies Allergy Verified 10/18/16 08:58 Medical,Surgical,& Family Hx - Medical History Cardio: History of: CHF (End-stage cardiomyopathy with previous ejection fraction 15%.) Endocrine: History of: Dyslipidemia No history of: Diabetes Mellitus (IDDM), Diabetes Mellitus (NIDDM) Respiratory: History of: Pneumonia Musculoskeletal: History of: Back/Neck Problems - Family History Family History: Reports;: Family Diabetes (mother), Family Heart Disease (mother ), Family Hypertension (everyone), Family Stroke (mother) - Social History Smoking Status: Smoker, status unknown Frequency of Alcohol Use: Occasionally Type of Drug Use: None Cardiology Physical Exam - Constitutional Vitals: Vital Signs Temp Pulse Resp BP Pulse Ox 97.6 F 91 H 18 112/85 98 10/21/16 15:24 10/21/16 15:24 10/21/16 15:36 10/21/16 15:24 10/21/16 15:24 Intake and Output 10/20/16 10/21/16 10/21/16 23:59 07:59 15:59 Other: Weight 84.822 kg Patient Weight 10/21/16 23:59 Weight 84.822 kg General appearance: normal weight, no acute distress - Head Head exam: Present: normal inspection, normocephalic, atraumatic - Neck Neck exam: Present: normal inspection - Respiratory Respiratory exam: Present: clear to auscultation bilaterally - Cardiovascular Cardiovascular exam: Present: regular rate and rhythm. Absent: diastolic murmur , JVD, rubs, systolic murmur - Extremities Exam Extremities exam: Absent: edema - Neurological Exam Neurological exam: Present: alert, oriented X3, normal gait
[2016-10-21] MEDS ORDERED: ENOXAPARIN 80 MG/0.8 ML SYRINGE SUBCUT STA (16:04)
[2016-10-21] MEDS ORDERED: ENOXAPARIN 80 MG/0.8 ML SYRINGE SUBCUT ONE (16:06)
[2016-10-21 16:07] LABS: Barbiturates Screen,Urine Negative (Negative); Benzodiazepines Screen,Urine Negative (Negative); Cannabinoid Screen,Urine Positive (Negative); Opiate Screen,Urine Positive (Negative); Phencyclidine Screen,Urine Negative (Negative)
[2016-10-21] MEDS ORDERED: ONDANSETRON 4 MG/2 ML VIAL IV PRN (16:08)
[2016-10-21] MEDS ORDERED: MORPHINE 2 MG/1 ML SYRINGE IV PRN (16:08)
[2016-10-21] MEDS ORDERED: MAGNESIUM SULF RIDER 4 GM in PREMIX 1 EACH IV PRN (16:08)
[2016-10-21] MEDS ORDERED: MAGNESIUM SULF RIDER 2 GM in PREMIX 1 EACH IV PRN (16:08)
[2016-10-21 16:30] LABS: CKMB % 7.9 %
[2016-10-21 16:33] LABS: Basophils # 0.1 10*3/uL (0.0-0.2); Basophils % 0.9 % (0.0-0.8); Eosinophils # 0.3 10*3/uL (0.0-0.87); Eosinophils % 3.9 % (0.00-10.9); Hematocrit 46.2 VOL% (42.0-52.0); Hemoglobin 15.1 GM/DL (14.0-18.0); Immature Granulocytes % 0.3 %; Immature Granulocytes Absolute 0.02 #; Lymphocytes % 28.1 % (21.2-54.2); Mean Corpuscular HGB Conc 32.7 GM/DL (32-36); Mean Corpuscular Hemoglobin 28 PG (27-34); Mean Corpuscular Volume 86.5 FL (87-102); Mean Platelet Volume 11.7 FL (9.6-12.0); Monocytes # 0.3 10*3/uL (0.11-0.8); Monocytes % 4.7 % (1.7-12.7); Neutrophils # 4.4 10*3/uL (1.4-7.4); Neutrophils % 62.1 % (38.7-73.9); Platelet Count 164 T/CUMM (130-400); Red Blood Count 5.34 MC/CUMM (3.8-5.5); Red Cell Distribution Width 13.6 % (9.3-17.3)
[2016-10-21 16:35] LABS: Troponin I Only 21.6 NG/ML (0.00-0.045)
[2016-10-21 16:42] LABS: Osmolality,Calculated 278.7 MOS/KG (273-304)
[2016-10-21] MEDS: ENOXAPARIN 80 MG/0.8 ML SYRINGE SUBCUT SCH (17:32)
[2016-10-21] MEDS ORDERED: TICAGRELOR 90 MG TABLET PO ONE (17:44)
[2016-10-21] MEDS: TICAGRELOR 90 MG TABLET PO SCH (20:24)
[2016-10-21] MEDS ORDERED: CARVEDILOL 6.25 MG TABLET PO SCH (21:00)
[2016-10-22 05:57] LABS: Basophils # 0.1 10*3/uL (0.0-0.2); Basophils % 0.7 % (0.0-0.8); Eosinophils # 0.3 10*3/uL (0.0-0.87); Eosinophils % 4.7 % (0.00-10.9); Hematocrit 43.6 VOL% (42.0-52.0); Hemoglobin 14.6 GM/DL (14.0-18.0); Immature Granulocytes % 0.3 %; Immature Granulocytes Absolute 0.02 #; Lymphocytes # 1.6 10*3/uL (1.4-4.0); Lymphocytes % 23.4 % (21.2-54.2); Mean Corpuscular HGB Conc 33.5 GM/DL (32-36); Mean Corpuscular Hemoglobin 28 PG (27-34); Mean Corpuscular Volume 83.4 FL (87-102); Mean Platelet Volume 11.9 FL (9.6-12.0); Monocytes # 0.5 10*3/uL (0.11-0.8); Monocytes % 6.8 % (1.7-12.7); Neutrophils # 4.3 10*3/uL (1.4-7.4); Neutrophils % 64.1 % (38.7-73.9); Platelet Count 176 T/CUMM (130-400); Red Blood Count 5.23 MC/CUMM (3.8-5.5); Red Cell Distribution Width 13.7 % (9.3-17.3); White Blood Count 6.8 T/CUMM (4-12)
[2016-10-22] MEDS: ENOXAPARIN 80 MG/0.8 ML SYRINGE SUBCUT SCH (06:23)
[2016-10-22 06:44] LABS: Albumin 3.3 G/DL (3.4-5.0); Bilirubin,Total 0.8 MG/DL (0.2-1.0); CKMB % 8.7 %; Calcium 8.7 MG/DL (8.5-10.1); Free T4 (Free Thyroxine) 1.03 NG/DL (0.76-1.46); Osmolality,Calculated 279.4 MOS/KG (273-304); Thyroid Stimulating Hormone 1.3 uIU/ml (0.358-3.74); Total Protein 6.3 G/DL (6.4-8.3)
[2016-10-22 06:45] LABS: Troponin I Only 21.8 NG/ML (0.00-0.045)
--- NOTE | 2016-10-22 08:41 | EKG Report ---
Stationary ECG Study [facility] Test Date: 10/22/2016 7:58:31 AM Pat Name: DIAMOND UP Department: Room: 283 Gender: M Research Professional: JULI : 1960 Requested by: Guido Miller Order Number: [id number] Reading MD: ELLIS PENA Intervals [place] Rate: 88 P: 64 [place]: 149 QRS: 4 QRSD: 116 T: 168 QT: 411 QTc: 457 Interpretive Statements SINUS RHYTHM LEFT VENTRICULAR HYPERTROPHY AND ST-T CHANGE POSSIBLE LATERAL MYOCARDIAL INFARCTION, OF INDETERMINATE AGE Electronically Signed On 10-26-16 09:28:38 CDT by ELLIS PENA [email or web address]
--- NOTE | 2016-10-22 08:50 | Cardiology Progress Note ---
Assessment and Plan (1) Chest pain at rest Status: Acute Assessment and plan: 1. 56-year-old BM smoker with hypertension, dyslipidemia, severe cardiomyopathy , cocaine abuse oh (denies any for one week) and reported small vessel CAD in 2010, who presented early this week out of his heart failure medication for one to 2 weeks with increasing dyspnea, and episodes of prolonged chest discomfort lasting for hours with troponin elevation maxing at 3, with no obstructive coronary artery disease at catheterization (less than 30% stenoses, but large ectatic vessels). 2. EKG shows early repolarization with early repolarization, and LVO 3. Chest pain is improving but persists; give Lovenox 1 mg/kg twice a day with follow-up cardiac panels. 4. I discussed with his absolute need to stop all smoking 5. Previous history of cocaine and cannabis use; urine tox screen is pending. 6. Severely reduced LV systolic function with ejection fraction 20-25% eye catheterization (modest better than at catheterization 2010 when his anatomy was essentially same as it is now) 7. Plan to observe overnight on telemetry. October 22 update: 1. Troponin has been unchanged just over 202 and is hemodynamically stable with much improved chest discomfort and shortness of breath 2. He without stable 3. I discussed with his absolute need to stop all cocaine's. He is not wished to discuss it. I did suggest that he would not survive more than 2 years without stopping completely. 4. Given he had no obstructive coronary artery disease last week, with large ectatic vessels, suspect this recurrent non-STEMI related to mixture of spasm with possible some thrombosis. Medical therapy will be intensified with Brilinta, with his baby aspirin daily. 5. Renal function is normal, start Lasix 80 mg daily 6. Reduce Lovenox to 40 millions per day 7. We'll observe overnight on telemetry, consider discharge in the morning Current Visit: Yes (2) Essential hypertension Status: Chronic Current Visit: No (3) History of cocaine use Status: Chronic Current Visit: No (4) Hypercholesterolemia Status: Chronic Current Visit: No (5) Tobacco abuse Status: Chronic Current Visit: No Cardiology - PN: Subj Interval history: Mr. Montalvo reports only occasional mild chest discomfort "a lot better". He is not having shortness of breath at rest. He does have dyspnea when he walks. He does not want to talk about cocaine use or cigarettes, "everyone has already told me that". He is not having dysrhythmia. Exam (Progress Note) - Constitutional Vitals: Period Temp Pulse Resp BP Sys/Cevallos Pulse Ox Last 24 Hr 96.9 F-97.8 F 54-95 16-20 111-137/70-94 93-96 General appearance: normal weight, no acute distress - Head Head exam: Present: normal inspection, normocephalic, atraumatic - Respiratory Respiratory exam: Present: clear to auscultation bilaterally. Absent: stridor, wheezes - Cardiovascular Cardiovascular exam: Present: regular rate and rhythm. Absent: diastolic murmur , rubs - GI/Abdominal GI/Abdominal exam: Present: tenderness, soft - Extremities Exam Extremities exam: Absent: edema - Neurological Exam Neurological exam: Present: alert, oriented X3 Result/EKG - Labs CBC & BMP: 10/22/16 04:57 10/22/16 04:57 Labs: Laboratory Results - last 24 hr 10/22/16 10/22/16 04:57 04:57 WBC 6.8 RBC 5.23 Hgb 14.6 Hct 43.6 MCV 83.4 L MCH 28 MCHC 33.5 RDW 13.7 Plt Count 176 MPV 11.9 Neut % (Auto) 64.1 Lymph % (Auto) 23.4 [place] % (Auto) 6.8 Eos % (Auto) 4.7 Baso % (Auto) 0.7 Neut # (Auto) 4.3 Lymph # (Auto) 1.6 [place] # (Auto) 0.5 Eos # (Auto) 0.3 Baso # (Auto) 0.1 Immature Gran % 0.3 Nucleated RBC % 0.0 Immature Gran # 0.02 Nucleated RBCs # 0.00 Sodium 140 Potassium 4.0 Chloride 107 Carbon Dioxide 22 Anion Gap 15.0 BUN 14 Creatinine 1.30 GFR Calculation 83 BUN/Creatinine Ratio 10.00 Glucose 97 Calculated Osmolality 279.4 Calcium 8.7 Total Bilirubin 0.80 AST 120 H ALT 41 Alkaline Phosphatase 49 Total Creatine Kinase 838 H CK-MB (CK-2) 73.0 H D CK and CKMB Interp 8.7 Troponin I 21.800 H Total Protein 6.3 L Albumin 3.3 L Globulin 3.0 Albumin/Globulin Ratio 1.1 Free T4 1.03 TSH 3rd Generation 1.300
[2016-10-22] MEDS ORDERED: CLOPIDOGREL 75 MG TABLET PO SCH (09:00)
[2016-10-22] MEDS: ENOXAPARIN 40 MG/0.4 ML SYRINGE SUBCUT SCH (09:07)
[2016-10-22] MEDS: LISINOPRIL/HCTZ 20-25 MG TABLET PO SCH (09:08)
[2016-10-22] MEDS: TICAGRELOR 90 MG TABLET PO SCH ×2 (09:08→21:03)
[2016-10-22] MEDS: CARVEDILOL 12.5 MG TABLET PO SCH ×2 (09:08→21:03)
[2016-10-22] MEDS: FUROSEMIDE 80 MG TABLET PO SCH (09:08)
[2016-10-22] MEDS: ATORVASTATIN 40 MG TABLET PO SCH (09:08)
[2016-10-22] MEDS: SPIRONOLACTONE 25 MG TABLET PO SCH (09:08)
--- NOTE | 2016-10-22 10:01 | EKG Report ---
Stationary ECG Study [facility] ER Test Date: 10/21/2016 3:26:03 PM Pat Name: DIAMOND UP Department: Room: 283 Gender: M Legal Service Specialist: : 1960 Requested by: Soumya Hernandez Order Number: [id number] Reading MD: ELLIS PENA Intervals [place] Rate: 90 P: 51 ND: 160 QRS: -20 QRSD: 116 T: 160 QT: 408 QTc: 455 Interpretive Statements SINUS RHYTHM WITH OCCASIONAL VENTRICULAR PREMATURE COMPLEXES LEFT VENTRICULAR HYPERTROPHY AND ST-T CHANGE POSSIBLE SEPTAL MYOCARDIAL INFARCTION, PROBABLY RECENT POSSIBLE LATERAL MYOCARDIAL INFARCTION, POSSIBLY RECENT Electronically Signed On 10-25-16 17:17:25 CDT by ELLIS PENA [email or web address]
[2016-10-23 05:10] LABS: Basophils # 0.1 10*3/uL (0.0-0.2); Basophils % 0.7 % (0.0-0.8); Eosinophils # 0.2 10*3/uL (0.0-0.87); Eosinophils % 2.9 % (0.00-10.9); Hematocrit 46.2 VOL% (42.0-52.0); Immature Granulocytes % 0.3 %; Immature Granulocytes Absolute 0.02 #; Lymphocytes % 28.1 % (21.2-54.2); Mean Corpuscular HGB Conc 32.5 GM/DL (32-36); Mean Corpuscular Hemoglobin 28 PG (27-34); Mean Corpuscular Volume 84.9 FL (87-102); Mean Platelet Volume 10.9 FL (9.6-12.0); Monocytes # 0.4 10*3/uL (0.11-0.8); Monocytes % 6.1 % (1.7-12.7); Neutrophils # 4.5 10*3/uL (1.4-7.4); Neutrophils % 61.9 % (38.7-73.9); Platelet Count 178 T/CUMM (130-400); Red Blood Count 5.44 MC/CUMM (3.8-5.5); Red Cell Distribution Width 13.5 % (9.3-17.3); White Blood Count 7.2 T/CUMM (4-12)
[2016-10-23 05:54] LABS: CKMB % 2.4 %; Calcium 9.5 MG/DL (8.5-10.1); Magnesium 2.3 MG/DL (1.8-2.4); Potassium 3.8 MMOL/L (3.5-5.1)
[2016-10-23 05:56] LABS: Troponin I Only 13.2 NG/ML (0.00-0.045)
[2016-10-23] MEDS: CARVEDILOL 12.5 MG TABLET PO SCH (09:35)
[2016-10-23] MEDS: LISINOPRIL/HCTZ 20-25 MG TABLET PO SCH (09:35)
[2016-10-23] MEDS: ATORVASTATIN 40 MG TABLET PO SCH (09:35)
[2016-10-23] MEDS: TICAGRELOR 90 MG TABLET PO SCH (09:35)
[2016-10-23] MEDS: ENOXAPARIN 40 MG/0.4 ML SYRINGE SUBCUT SCH (09:35)
[2016-10-23] MEDS: FUROSEMIDE 80 MG TABLET PO SCH (09:35)
[2016-10-23] MEDS: SPIRONOLACTONE 25 MG TABLET PO SCH (09:35)
--- NOTE | 2016-10-23 11:18 | Discharge Summary ---
<Ginny Lama - Last Filed: 10/23/16 11:29> Hospital Course - Hospital Course Hospital Course: [facility] Winder: Dr. Zazueta PCP: Dr. Dover Mr. Montalvo is a 56 year old -Aust[place] male, patient of Dr. Zazueta's. His primary care provider is Dr. Dover. He has a history of end-stage cardiomyopathy with EF 15%, long-standing hypertension, posterior myocardial infarction with CHF, noncompliance with medications, prior cocaine abuse, mild mitral regurgitation, long-term tobacco abuse, hypercholesterolemia, cannabis use. He has a family history of coronary artery disease including a mother who had an OR in her mid 60s, brother who had an OR at age 50 with subsequent CABG. He lives in [place] with his mother. He is and unemployed. 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 His surgical history is noncontributory. Patient was just recently hospitalized and discharged on October 19 after being transferred from [facility] with progressive angina. He reports that he was out of his heart failure medication for approximately 1-2 weeks. Subsequently, he began experiencing increasing dyspnea on exertion and episodes of prolonged chest discomfort lasting for hours. Troponin maxed at 3. Patient was taken to the [facility] per Dr. Zazueta with the following impressions noted: Impression: 1. Severely reduced LV systolic function ejection fraction estimated be 20-25% with global hypokinesis 2. Right dominant system 3. Diffusely ectatic vessels which are large (particularly in the proximal LAD) 4. Moderate irregularities with trivial CAD (30% mid PDA stenosis) Recommendations and discussion: Given these findings it appears Mr. Montalvo had exacerbation of his heart failure due to medical noncompliance. I will start him back on Coreg and low-dose YOLANDA inhibitor. He may benefit from nitrates and hydralazine. After being discharged, patient returned to the emergency room on October 21 with recurrent chest pain. Upon arrival to the ER, his troponin was noted to be 21.6. Overnight, his troponin was unchanged. Given he had no obstructive coronary artery disease per last heart catheterization 10/18/16, it is suspected that he had recurrent non-STEMI related to mixture of spasm and/or possible thrombosis. Medical therapy was intensified with Brilinta, with baby aspirin daily. Urine drug screen was positive for opiates, cocaine and cannabis. A long discussion ensued today regarding the need for continued compliance with his medications, cessation of illicit drugs including cocaine, alcohol and marijuana. Patient is now without chest pain and shortness of breath. He is not willing to go to a drug rehab at this time. However, he has requested to be sent home with an antidepressant. I have added Zoloft at this time. Right groin remains soft without bleeding, hematoma and bruit. Distal pulses present. Troponin has trended down as expected. Creatinine is mildly elevated at 1.5. 1.6 on admission. I will decrease his Lasix dose to 40 mg daily. Creatinine will be rechecked at his follow up appointment with Dr. Zazueta. At that time, if needed further medication adjustments can be made. Patient is anxious for discharge. Having felt the patient has met maximal medical therapy , he will be discharged home in stable condition. Patient will keep his follow-up appointment with Dr. Zazueta November 02 with BMP, magnesium and EKG. Patient verbalized understanding of discharge instructions and discharge medications. - Time spent with patient Time with patient DS: Greater than 30 minutes Diagnosis - Discharge Diagnosis (1) Cardiomyopathy Status: Chronic (2) Chest pain Status: Resolved (3) Cannabis abuse Status: Chronic (4) Essential hypertension Status: Chronic (5) History of cocaine use Status: Chronic (6) Hypercholesterolemia Status: Chronic (7) Tobacco abuse Status: Chronic Specialty Discharge - Follow Up or Referrals Follow up with: Guido Zazueta MD [Physician] - (Follow-up appointment with Dr. Zazueta November 02 with BMP, magnesium and EKG.) Discharge Plan - Discharge Data Disposition: Disch To Home/Self Care Condition at Discharge: Stable Discharge Diet: heart healthy Activity: no lifting (No heavy lifting or squatting until seen by Dr. Zazueta.) Hygiene: may shower Weight Bearing at Discharge: weight bear as tolerated Driving: not until seen by doctor Contact your physician if you experience:: fever over 101, Difficulty voiding, Redness or swelling, Nausea/Vomiting, Shortness of breath, Bleeding, pain uncontrolled by pain medications - Discharge Medications New Carvedilol [Coreg] 12.5 mg PO BID #60 tablet Furosemide [Lasix] 40 mg PO DAILY #30 tablet Sertraline [Zoloft] 50 mg PO BEDTIME #30 tablet Ticagrelor [Brilinta] 90 mg PO BID #60 tablet Continue Gabapentin Cap/Tab [Neurontin Cap/Tab] 100 mg PO TID #21 capsule Nitroglycerin Sl Tab [Nitrostat] 0.4 mg SL Q5M PRN #30 tablet PRN Reason: Chest Pain Spironolactone [Aldactone] 25 mg PO QAM Aspirin EC Tab 81 mg PO QAM Acetaminophen Tab [Tylenol Tab] 325 mg PO BID #14 tablet Atorvastatin [Lipitor] 40 mg PO QAM Lisinopril/Hydrochlorothiazide [Lisinopril-Hctz 20-25 mg Tab] 1 each PO QAM Discontinued Carvedilol [Coreg] 6.25 mg PO BID #60 tablet Clopidogrel [Plavix] 75 mg PO QAM - Follow Up or Referral Follow Up: Guido Zazueta MD [Physician] - (Follow-up appointment with Dr. Zazueta November 02 with BMP, magnesium and EKG.) - Forms/Instructions Instructions: Sertraline (By mouth) Exam - Constitutional Vitals: Period Temp Pulse Resp BP Sys/Cevallos Pulse Ox Last 24 Hr 96.7 F-98.4 F 79-88 18-20 90-106/62-75 95-100 General appearance: normal weight, no acute distress - Head Head exam: Present: normal inspection, normocephalic, atraumatic - Neck Neck exam: Present: normal inspection - Respiratory Respiratory exam: Present: clear to auscultation bilaterally. Absent: accessory muscle use, chest wall tenderness, rales, rhonchi, stridor, wheezes - Cardiovascular Cardiovascular exam: Present: regular rate and rhythm. Absent: rubs - GI/Abdominal GI/Abdominal exam: Present: normal bowel sounds, soft. Absent: distended, firm , mass, tenderness - Extremities Exam Extremities exam: Present: normal inspection, normal capillary refill, other ( right groin without evidence of hematoma or bleeding, no bruit appreciated). Absent: calf tenderness, edema - Neurological Exam Neurological exam: Present: alert, oriented X3, normal gait - Psychiatric Psychiatric exam: Present: normal affect, normal mood - Skin Skin exam: Present: normal color, warm, dry. Absent: cyanosis, erythema Discharge Results Labs on day of discharge: Labs from last 24 hours 10/23/16 10/23/16 04:46 04:46 WBC 7.2 RBC 5.44 Hgb 15.0 Hct 46.2 MCV 84.9 L MCH 28 MCHC 32.5 RDW 13.5 Plt Count 178 MPV 10.9 Neut % (Auto) 61.9 Lymph % (Auto) 28.1 [place] % (Auto) 6.1 Eos % (Auto) 2.9 Baso % (Auto) 0.7 Neut # (Auto) 4.5 Lymph # (Auto) 2.0 [place] # (Auto) 0.4 Eos # (Auto) 0.2 Baso # (Auto) 0.1 Immature Gran % 0.3 Nucleated RBC % 0.0 Immature Gran # 0.02 Nucleated RBCs # 0.00 Sodium 136 Potassium 3.8 Chloride 99 Carbon Dioxide 28 Anion Gap 12.8 BUN 19 H Creatinine 1.50 H GFR Calculation 70 BUN/Creatinine Ratio 12.00 Glucose 104 Calculated Osmolality 273.0 Calcium 9.5 Magnesium 2.3 Total Creatine Kinase 529 H D CK-MB (CK-2) 12.8 H D CK and CKMB Interp 2.4 Troponin I 13.200 H D DS: Provider Date of admission: 10/21/16 16:08 Primary care physician: . No PCP Attending physician on admission: Guido Mora Consults: 10/21/16 17:25 Consult to Pharmacy [CONS] Routine Reason for Pharmacy Consult: Adjust Meds Renal Funct Discharging clinician: Ginny Lama NP Expected date of discharge: 10/23/16 <Yojana Schultz - Last Filed: 10/23/16 20:53> Hospital Course - Hospital Course Hospital Course: I personally interviewed and examined the patient, reviewed the chart and discussed medical decision-making with practitioner Kelby. I have read this note and agree with the findings herein.
[2016-10-23] MEDS ORDERED: SODIUM CHLORIDE 0.45% 250 ML IV ONE (14:05)
[2016-10-23 14:45] VITALS: BP 97/62
== END 2016-10-23 15:15 | disposition home or self-care (01) | DRG 313 ==
LOC: EDUNIT# → N.ED 15:20 → N.EDINP 16:08 → N.TELEN 16:53
PROVIDERS: ADMIT Internal Medicine Cardiovascular Disease; ATTEND Internal Medicine Cardiovascular Disease

== ENCOUNTER 2017-04-28 12:22 | Inpatient (IN) ==
[2017-04-28] MEDS ORDERED: ACETAMINOPHEN 325 MG TABLET PO ONE (12:40)
[2017-04-28] MEDS ORDERED: SODIUM CHLORIDE 0.9% 1,000 ML IV STA (12:40)
[2017-04-28] MEDS ORDERED: ACETAMINOPHEN 325 MG TABLET ONE (12:45)
[2017-04-28 13:03] LABS: Basophils # 0.1 10*3/uL (0.0-0.2); Basophils % 0.5 % (0.0-0.8); Eosinophils % 0.1 % (0.00-10.9); Hematocrit 37.7 VOL% (42.0-52.0); Immature Granulocytes % 0.3 %; Immature Granulocytes Absolute 0.03 #; Lymphocytes # 1.2 10*3/uL (1.4-4.0); Lymphocytes % 12.4 % (21.2-54.2); Mean Corpuscular HGB Conc 34.5 GM/DL (32-36); Mean Corpuscular Hemoglobin 28 PG (27-34); Mean Corpuscular Volume 82.1 FL (87-102); Mean Platelet Volume 10.7 FL (9.6-12.0); Monocytes # 0.7 10*3/uL (0.11-0.8); Monocytes % 6.8 % (1.7-12.7); Neutrophils # 7.7 10*3/uL (1.4-7.4); Neutrophils % 79.9 % (38.7-73.9); Platelet Count 130 T/CUMM (130-400); Red Blood Count 4.59 MC/CUMM (3.8-5.5); Red Cell Distribution Width 13.8 % (9.3-17.3); White Blood Count 9.6 T/CUMM (4-12)
[2017-04-28 13:05] LABS: INR 1.1; PT Patient Result 11.4 SECS
[2017-04-28 13:19] LABS: Alanine Aminotransferase 21 U/L (16-61); Albumin 3.4 G/DL (3.4-5.0); Alkaline Phosphatase 40 U/L (45-117); Aspartate Amino Transferase 15 U/L (0-37); Blood Urea Nitrogen 13 MG/DL (7-18); Calcium 8.6 MG/DL (8.5-10.1); Glucose 104 MG/DL (74-106); Osmolality,Calculated 261.7 MOS/KG (273-304); Potassium 2.7 MMOL/L (3.5-5.1); Sodium 131 MMOL/L (136-145); Total Protein 7.2 G/DL (6.4-8.3)
[2017-04-28 13:26] LABS: Barbiturates Screen,Urine Negative (Negative); Benzodiazepines Screen,Urine Negative (Negative); Cannabinoid Screen,Urine Positive (Negative); Opiate Screen,Urine Positive (Negative); Phencyclidine Screen,Urine Negative (Negative)
[2017-04-28] MEDS ORDERED: cefTRIAXone 1,000 MG in SODIUM CHLORIDE 0.9% 100 ML IV STA (13:46)
[2017-04-28] MEDS ORDERED: AZITHROMYCIN INJ 500 MG in SODIUM CHLORIDE 0.9% 250 ML IV STA (13:46)
[2017-04-28] MEDS ORDERED: AZITHROMYCIN 500 MG VIAL IV ONE (14:15)
[2017-04-28] MEDS ORDERED: cefTRIAXone 1,000 MG VIAL ONE (14:15)
[2017-04-28] MEDS ORDERED: POTASSIUM CHLORIDE 20 MEQ TABLET PO STA (14:59)
[2017-04-28] MEDS ORDERED: POTASSIUM CHLORIDE 20 MEQ TABLET PO ONE ×2 (15:00→15:04)
[2017-04-28] MEDS ORDERED: ONDANSETRON 4 MG/2 ML VIAL IV PRN (15:31)
[2017-04-28] MEDS ORDERED: NICOTINE 21 MG/24 HR PATCH TRANSDERM PRN (15:31)
[2017-04-28] MEDS: GABAPENTIN 100 MG CAPSULE PO SCH ×2 (15:51→21:28)
[2017-04-28] MEDS: POTASSIUM CHLORIDE 20 MEQ TABLET PO PRN ×2 (18:24→21:29)
[2017-04-28 19:00] LABS: Troponin I Only 0.085 NG/ML (0.00-0.045)
[2017-04-28] MEDS: TICAGRELOR 90 MG TABLET PO SCH (21:27)
[2017-04-28] MEDS: SERTRALINE 50 MG TABLET PO SCH (21:28)
[2017-04-29] MEDS: ACETAMINOPHEN 325 MG TABLET PO PRN ×4 (00:27→20:48)
[2017-04-29 00:37] LABS: Troponin I Only 0.078 NG/ML (0.00-0.045)
[2017-04-29 05:47] LABS: Basophils % 0.2 % (0.0-0.8); Hematocrit 38.1 VOL% (42.0-52.0); Hemoglobin 13.1 GM/DL (14.0-18.0); Immature Granulocytes % 0.1 %; Immature Granulocytes Absolute 0.01 #; Lymphocytes % 11.3 % (21.2-54.2); Mean Corpuscular HGB Conc 34.4 GM/DL (32-36); Mean Corpuscular Hemoglobin 28 PG (27-34); Mean Corpuscular Volume 81.9 FL (87-102); Mean Platelet Volume 10.2 FL (9.6-12.0); Monocytes # 0.7 10*3/uL (0.11-0.8); Monocytes % 7.8 % (1.7-12.7); Neutrophils # 7.3 10*3/uL (1.4-7.4); Neutrophils % 80.6 % (38.7-73.9); Platelet Count 130 T/CUMM (130-400); Red Blood Count 4.65 MC/CUMM (3.8-5.5); Red Cell Distribution Width 13.8 % (9.3-17.3); White Blood Count 9.1 T/CUMM (4-12)
[2017-04-29 06:23] LABS: Free T4 (Free Thyroxine) 1.03 NG/DL (0.76-1.46)
[2017-04-29 06:29] LABS: Troponin I Only 0.065 NG/ML (0.00-0.045)
[2017-04-29 06:30] LABS: Calcium 8.6 MG/DL (8.5-10.1); Magnesium 2.3 MG/DL (1.8-2.4); Osmolality,Calculated 263.5 MOS/KG (273-304); Potassium 3.2 MMOL/L (3.5-5.1); Risk Ratio 2.22; Thyroid Stimulating Hormone 0.055 uIU/ml (0.358-3.74)
[2017-04-29 08:31] LABS: Apearance,Urine CLEAR (Clear); Bilirubin,Urine Negative (Negative); Blood, Urine Small mg/dL (Negative); Glucose,Urine (UA) Negative (Negative); Ketones,Urine Negative (Negative); Nitrite,Urine Negative (Negative); Protein,Urine Negative; RBC,Urine <1 /HPF (0-4); Urine Color Yellow (Yellow); Urine Specific Gravity 1.006 (1.001-1.035); WBC,Urine <1 /HPF (0-6)
[2017-04-29] MEDS: ASPIRIN EC 81 MG TABLET PO SCH (08:37)
[2017-04-29] MEDS: PANTOPRAZOLE 40 MG TABLET PO SCH (08:37)
[2017-04-29] MEDS: TICAGRELOR 90 MG TABLET PO SCH ×2 (08:37→20:48)
[2017-04-29] MEDS: POTASSIUM CHLORIDE 20 MEQ TABLET PO SCH (08:37)
[2017-04-29] MEDS: ATORVASTATIN 40 MG TABLET PO SCH (08:37)
[2017-04-29] MEDS: GABAPENTIN 100 MG CAPSULE PO SCH ×3 (08:37→20:48)
[2017-04-29 13:21] LABS: HIV Antigen/Antibody Result Nonreactive (Nonreactive)
[2017-04-29] MEDS: LEVOFLOXACIN INJ 750 MG in PREMIX 1 EACH IV SCH (13:30)
[2017-04-29] MEDS: SERTRALINE 50 MG TABLET PO SCH (20:48)
[2017-04-30] MEDS: ATORVASTATIN 40 MG TABLET PO SCH (08:50)
[2017-04-30] MEDS: PANTOPRAZOLE 40 MG TABLET PO SCH (08:50)
[2017-04-30] MEDS: TICAGRELOR 90 MG TABLET PO SCH (08:50)
[2017-04-30] MEDS: GABAPENTIN 100 MG CAPSULE PO SCH ×3 (08:51→21:15)
[2017-04-30] MEDS: POTASSIUM CHLORIDE 20 MEQ TABLET PO SCH ×4 (08:51→22:36)
[2017-04-30] MEDS: ASPIRIN EC 81 MG TABLET PO SCH (08:51)
[2017-04-30] MEDS: LEVOFLOXACIN INJ 750 MG in PREMIX 1 EACH IV SCH (13:52)
[2017-04-30 14:42] LABS: Calcium 8.5 MG/DL (8.5-10.1); Magnesium 2.6 MG/DL (1.8-2.4); Potassium 3.3 MMOL/L (3.5-5.1)
[2017-04-30] MEDS: SERTRALINE 50 MG TABLET PO SCH (21:15)
[2017-05-01] MEDS: POTASSIUM CHLORIDE 20 MEQ TABLET PO SCH (02:26)
[2017-05-01 05:40] LABS: Basophils % 0.4 % (0.0-0.8); Eosinophils # 0.3 10*3/uL (0.0-0.87); Eosinophils % 5.2 % (0.00-10.9); Hematocrit 37.9 VOL% (42.0-52.0); Hemoglobin 12.7 GM/DL (14.0-18.0); Immature Granulocytes % 0.4 %; Immature Granulocytes Absolute 0.02 #; Lymphocytes # 1.4 10*3/uL (1.4-4.0); Lymphocytes % 24.7 % (21.2-54.2); Mean Corpuscular HGB Conc 33.5 GM/DL (32-36); Mean Corpuscular Hemoglobin 28 PG (27-34); Mean Corpuscular Volume 84.2 FL (87-102); Monocytes # 0.6 10*3/uL (0.11-0.8); Monocytes % 11.1 % (1.7-12.7); Neutrophils # 3.3 10*3/uL (1.4-7.4); Neutrophils % 58.2 % (38.7-73.9); Platelet Count 168 T/CUMM (130-400); Red Cell Distribution Width 13.5 % (9.3-17.3); White Blood Count 5.6 T/CUMM (4-12)
[2017-05-01 06:08] LABS: Calcium 9.1 MG/DL (8.5-10.1); Magnesium 2.7 MG/DL (1.8-2.4); Osmolality,Calculated 273.7 MOS/KG (273-304); Osmolality,Calculated 275.5 MOS/KG (273-304); Potassium 5.1 MMOL/L (3.5-5.1); Potassium 5.2 MMOL/L (3.5-5.1)
[2017-05-01] MEDS: ATORVASTATIN 40 MG TABLET PO SCH (10:52)
[2017-05-01] MEDS: GABAPENTIN 100 MG CAPSULE PO SCH ×3 (10:53→20:44)
[2017-05-01] MEDS: SPIRONOLACTONE 25 MG TABLET PO SCH (10:53)
[2017-05-01] MEDS: ASPIRIN EC 81 MG TABLET PO SCH (10:53)
[2017-05-01] MEDS: PANTOPRAZOLE 40 MG TABLET PO SCH (10:53)
[2017-05-01] MEDS: LISINOPRIL 20 MG TABLET PO SCH (10:53)
[2017-05-01] MEDS: LEVOFLOXACIN INJ 750 MG in PREMIX 1 EACH IV SCH (13:20)
[2017-05-01] MEDS: SODIUM CHLORIDE 0.9% 1,000 ML IV SCH (20:24)
[2017-05-01] MEDS: SERTRALINE 50 MG TABLET PO SCH (20:44)
[2017-05-02 05:14] LABS: Basophils % 0.7 % (0.0-0.8); Eosinophils # 0.4 10*3/uL (0.0-0.87); Eosinophils % 6.7 % (0.00-10.9); Hematocrit 38.6 VOL% (42.0-52.0); Immature Granulocytes % 0.5 %; Immature Granulocytes Absolute 0.03 #; Lymphocytes # 1.5 10*3/uL (1.4-4.0); Lymphocytes % 25.5 % (21.2-54.2); Mean Corpuscular HGB Conc 33.7 GM/DL (32-36); Mean Corpuscular Hemoglobin 28 PG (27-34); Mean Corpuscular Volume 84.5 FL (87-102); Mean Platelet Volume 10.1 FL (9.6-12.0); Monocytes # 0.4 10*3/uL (0.11-0.8); Monocytes % 7.2 % (1.7-12.7); Neutrophils # 3.5 10*3/uL (1.4-7.4); Neutrophils % 59.4 % (38.7-73.9); Platelet Count 178 T/CUMM (130-400); Red Blood Count 4.57 MC/CUMM (3.8-5.5); Red Cell Distribution Width 13.8 % (9.3-17.3)
[2017-05-02 05:45] LABS: Calcium 9.3 MG/DL (8.5-10.1); Magnesium 2.6 MG/DL (1.8-2.4); Osmolality,Calculated 277.5 MOS/KG (273-304); Potassium 4.7 MMOL/L (3.5-5.1)
[2017-05-02] MEDS: SODIUM CHLORIDE 0.9% 1,000 ML IV SCH (09:09)
[2017-05-02] MEDS: ASPIRIN EC 81 MG TABLET PO SCH (09:10)
[2017-05-02] MEDS: SPIRONOLACTONE 25 MG TABLET PO SCH (09:10)
[2017-05-02] MEDS: ATORVASTATIN 40 MG TABLET PO SCH (09:10)
[2017-05-02] MEDS: GABAPENTIN 100 MG CAPSULE PO SCH ×2 (09:10→16:16)
[2017-05-02] MEDS: PANTOPRAZOLE 40 MG TABLET PO SCH (09:10)
[2017-05-02] MEDS: LISINOPRIL 20 MG TABLET PO SCH (09:10)
[2017-05-02] MEDS ORDERED: SODIUM CHLORIDE 0.9% 1,000 ML IV SCH (14:37)
[2017-05-02] MEDS ORDERED: ETOMIDATE 20 MG/10 ML VIAL IV ONE (14:45)
[2017-05-02] MEDS ORDERED: PROPOFOL 200 MG/20 ML VIAL IV ONE (14:45)
[2017-05-02] MEDS ORDERED: LIDOCAINE 2% 5 ML VIAL ONE (14:45)
[2017-05-02 16:15] VITALS: BP 109/74
== END 2017-05-02 18:00 | disposition home or self-care (01) | DRG 722 ==
LOC: EDUNIT# → EDBD → N.EDINP 12:22 → N.ED 12:22 → SUATTDRO 13:55 → N.TELEN 15:12 → SUATTDRO 04-30 10:23 → UNDODISIN 05-02 15:00
PROVIDERS: ADMIT Internal Medicine Infectious Disease; ATTEND Internal Medicine